=== PATIENT | female | born 1985 | race Caucasian/White ===

== ENCOUNTER 2018-11-05 05:55 | Inpatient (IN) | payer BC ==
[2018-11-05 06:40] VITALS: BMI 28.3
[2018-11-05 06:41] LABS: Amnisure Internal Control QC ACCEPTABLE (ACCEPTABLE); Amnisure Test RUPTURE DETECTED (No Rupture)
[2018-11-05] MEDS ORDERED: Promethazine HCl 25 MG/ML VIAL IM PRN ×2 (07:17→08:33)
[2018-11-05] MEDS ORDERED: Diphenoxylate HCl/Atropine Tablet PO PRN (07:17)
[2018-11-05] MEDS ORDERED: HYDROcodone/Acetaminophen 5/325 mg Tablet PO PRN ×2 (07:17→21:49)
[2018-11-05] MEDS ORDERED: Misoprostol 200 MCG TAB PR PRN (07:17)
[2018-11-05] MEDS ORDERED: Carboprost 250 MCG/ML AMP IM PRN (07:17)
[2018-11-05] MEDS ORDERED: Methylergonovine 0.2 MG/ML VIAL IM PRN ×2 (07:17→21:49)
[2018-11-05] MEDS ORDERED: Ibuprofen 800 MG TAB PO PRN (07:17)
[2018-11-05] MEDS ORDERED: Lidocaine 1% (PF) 30 ML VIAL SC PRN (07:17)
[2018-11-05] MEDS ORDERED: Butorphanol Tartrate 1 MG/ML VIAL SLOW IVP PRN (07:17)
[2018-11-05] MEDS ORDERED: Ondansetron PF 4 MG/2 ML Vial IVP PRN ×2 (07:17→08:33)
[2018-11-05] MEDS: Lactated Ringer's 1,000 ML IV SCH ×3 (07:40→17:31)
[2018-11-05] MEDS ORDERED: Fentanyl 4 mcg/Bup 0.1% Cadd 100 ML ONE ×2 (08:00→15:02)
[2018-11-05 08:06] LABS: Hemoglobin 13.7 g/dL (12.0-16.0); Mean Corpuscular HGB CONC 33.3 g/dL (32.0-36.0); Mean Corpuscular Hemoglobin 30.4 pg (27.0-31.0); Mean Corpuscular Volume 91.3 fL (78.0-98.0); Mean Platelet Volume 8.8 fL (7.4-10.4); Platelet Count 206 thou/uL (130-400); RBC Distribution Width 13.2 % (11.5-14.5)
--- NOTE | 2018-11-05 08:09 | PDOC.LDHP ---
Labor and Delivery H&P Chief complaint: contractions, loss of fluid HPI: 33 yo G1 @ 39w2d who presents with SROM and latent labor. Antepartum course complicated by depression controlled on Zoloft, otherwise no other complications. Current gestational age (weeks): 39 Due date: 11/09/18 Dating criteria: last menstrual period Grav: 1 Para: 0 Current complications: none Abnormal US findings: No Past Medical History: Depression Current medications: pre- vitamins Previous surgical history: none Allergies/Adverse Reactions: Allergies Allergy/AdvReac Type Severity Reaction Status Date / Time No Known Allergies Allergy Verified 11/05/18 06:33 Social history: none - Physical Exam Vital signs reviewed and normal: yes General: NAD Heart: RRR Lungs: nonlabored breathing Abdomen: gravid Extremeties: no edema FHT: category 2 (130s, mod sebastian, +accels, some early and variable decels with ctx ) [place] contractions every: q2-4 min - Vaginal Exam cm dilated: 4 Effacement: 90% Station: 0 - OB Labs Blood type: B RH: positive Antibody Screen: negative HIV: negative RPR: negative HEPSAg: negative 1 hour GCT: negative GBS: negative Urine drug screen: not done Rubella: immune - Assessment L&D Assessment: term rupture in membranes - Plan Plan: admit to L&D, labor augmentation if indicated, informed consent obtained, anesthesia consult for pain management
[2018-11-05] MEDS ORDERED: Lidocaine 1.5% w/Epi 1:200K 30 ML VIAL (Epid Use) ONE (08:20)
[2018-11-05] MEDS ORDERED: Acetaminophen 325 MG TAB PO PRN (08:33)
[2018-11-05] MEDS ORDERED: Eucerin (Mineral Oil/Petrolatum,White) 30 gm Jar TOP PRN (08:33)
[2018-11-05] MEDS ORDERED: Naloxone HCl 0.4 mg/ml Vial IVP PRN ×2 (08:33)
[2018-11-05] MEDS ORDERED: Lactated Ringer's 500 ML IV PRN (08:33)
[2018-11-05] MEDS ORDERED: ePHEDrine/0.9% NaCl/PF SYRINGE 50 mg/10 ml SLOW IVP PRN (08:33)
[2018-11-05] MEDS ORDERED: diphenhydrAMINE 50 MG/ML VIAL IVP PRN (08:33)
[2018-11-05] MEDS ORDERED: Communication Order-Pharmacy FS SCH (08:45)
[2018-11-05] MEDS ORDERED: Fentanyl 4 mcg/Bupivacaine 0.1% Cassette 100 ML EPIDURAL SCH (08:45)
[2018-11-05 08:52] LABS: Syphilis Antibody Nonreactive (Nonreactive); Syphilis Antibody Index 0.02 S/CO (<1.00 Non-Reactive)
[2018-11-05] MEDS ORDERED: Bupivacaine HCl 0.25%/Epi 0.0005/PF 10 ML VIAL FS ONE (09:00)
[2018-11-05] MEDS ORDERED: Bupivacaine/Epinephrine 0.25% 30 ML VIAL ONE (11:11)
[2018-11-05 14:08] LABS: HBSAg Index 0.21 S/CO (0-0.99); HIV (1/2) Antibody/Antigen Non-Reactive (NonReactive); Hep B Surf Ag Non-Reactive S/CO (NonReactive)
[2018-11-05] MEDS ORDERED: NS w/ Oxytocin 10 units 500 ML ONE (15:43)
--- NOTE | 2018-11-05 17:16 | PDOC.LDPN ---
Labor & Delivery Progress Note - Subjective Subjective: comfortable - Objective Vital signs reviewed and normal: yes General: NAD Uterine fundus: non tender Dilation: AL Effacement: 100% Station: 0 FHT: category 2 (130s, mod sebastian, +accels, prolonged variable decel with recovery with position change and d/c pitocin. ) [place] contractions every: q3-4 min Resuscitative measures: amniofusion, maternal oxygen, maternal IV fluids, maternal position change - Assessment (1) 39 weeks gestation of Code(s): Z3A.39 - 39 WEEKS GESTATION OF Current Visit: Yes Status : Acute Plan: continue plan of care, resuscitative measures
[2018-11-05] MEDS: NS / Oxytocin 40 units/1000ml 1,000 ML IV PRN ×2 (19:38→21:49)
[2018-11-05 20:03] LABS: Actual Bicarbonate (HCO3a) 17.7 mEq/L (22-28)
--- NOTE | 2018-11-05 20:04 | PDOC.OPDEL ---
OB Operative/Delivery Note Delivery Dr/Surgeon: Tatyana Steven DO Pre-Delivery Diagnosis: ruptured membrane Procedure/Post Delivery Dx: spontaneous vaginal delivery Weeks gestation: 39 Anesthesia: epidural - Findings A Sex: male - 1 min: 5 - 5 min: 3 - Additional Findings/Plan Placenta delivered: spontaneous Repaired Obstetrical Laceration: other (2nd degree and right labial) Estimated blood loss: QBL 56 mL Compilations/Other Findings: Variable decels noted with maternal pushing efforts which resolved between contractions. in cephalic presentation with nuchal cord x 1. pink and moderate tone on delivery, no spontaneous cry noted and transferred to warmer. APGARS 5/3/7. NICU called shortly after delivery. Cord gases done, please see results Normal appearing placenta. Terminal meconium stained amniotic fluid Post delivery plan: routine recovery ( transferred to NICU)
[2018-11-05 20:05] LABS: Actual Bicarbonate (HCO3v) 19 mEq/L (22-28); pH (Cord, venous) 7.11 (7.32-7.43)
[2018-11-05] MEDS ORDERED: diphenhydrAMINE 25 MG CAP PO PRN (21:49)
[2018-11-05] MEDS ORDERED: Bisacodyl 10 MG SUPP PR PRN (21:49)
[2018-11-05] MEDS ORDERED: NS / Oxytocin 40 units/1000ml 1,000 ML IV SCH (21:49)
[2018-11-05] MEDS ORDERED: Benzocaine/Menthol 20-0.5% 60 ML CAN TOP PRN (21:49)
[2018-11-05] MEDS ORDERED: Milk Of Magnesia 30 ML UDCUP PO PRN (21:49)
[2018-11-06] MEDS: Ibuprofen 800 MG TAB PO SCH ×4 (00:50→23:14)
[2018-11-06] MEDS: Docusate Calcium (SURFAK) 240 MG CAP PO SCH ×3 (00:52→20:32)
[2018-11-06 06:35] LABS: Hemoglobin 11.7 g/dL (12.0-16.0); Mean Corpuscular HGB CONC 32.6 g/dL (32.0-36.0); Mean Corpuscular Hemoglobin 30.3 pg (27.0-31.0); Mean Platelet Volume 9.5 fL (7.4-10.4); Platelet Count 129 thou/uL (130-400); RBC Distribution Width 13.2 % (11.5-14.5); Red Blood Cell (RBC) Count 3.87 mill/uL (4.20-5.40); White Blood Cell (WBC) Count 17.9 thou/uL (4.8-10.8)
--- NOTE | 2018-11-06 08:33 | PRG ---
DATE OF SERVICE: 11/06/2018 PROGRESS NOTE. PRIMARY OB: Tatyana Steven DO SUBJECTIVE: The patient is a 33-year-old female, who is day 1, status post a term spontaneous vaginal delivery. The patient this morning reports that she is doing well. Bleeding is slowing down. She is ambulating, tolerating p.o. and voiding on her own. The patient has requested resumption of her home medication, Zoloft 50 mg daily that she takes at night. OBJECTIVE: VITAL SIGNS: Today; blood pressure is 125/88, temperature 98.2, pulse is 69, and respiratory rate of 18. GENERAL: She appears to be in no acute distress. She is alert and oriented, cooperative and pleasant to interact with. HEENT: Head is normocephalic, atraumatic. Fundus is firm. EXTREMITIES: Nontender and symmetrical. ASSESSMENT AND PLAN: The patient is day 1, status post term spontaneous vaginal delivery. We will be resuming her Zoloft that she takes at night daily at home and anticipate discharge tomorrow. Job ID: [id number]
[2018-11-06] MEDS: Prenatal Vitamin 1 TAB PO SCH (10:41)
[2018-11-06] MEDS: Acetaminophen 500 MG TAB PO PRN (20:35)
[2018-11-07] MEDS: Ibuprofen 800 MG TAB PO SCH ×2 (06:07→13:44)
[2018-11-07 08:19] VITALS: BP 119/81; TEMP 98.3
[2018-11-07] MEDS: Prenatal Vitamin 1 TAB PO SCH (08:20)
[2018-11-07] MEDS: Docusate Calcium (SURFAK) 240 MG CAP PO SCH (08:20)
[2018-11-07] MEDS: Acetaminophen 500 MG TAB PO PRN (09:49)
== END 2018-11-07 13:58 | disposition home or self-care (01) | DRG 807 ==
LOC: L&D/OP 05:55 → L&D 07:23 → 3SW 23:30
PROVIDERS: ADMIT Obstetrics & Gynecology; ATTEND Obstetrics & Gynecology
PROC: 10E0XZZ Delivery of Products of Conception, External Approach (ICD-10-PCS; principal; 2018-11-05)
PROC: 0KQM0ZZ Repair Perineum Muscle, Open Approach (ICD-10-PCS; 2018-11-05)
DX: O99.344 Other mental disorders complicating childbirth (principal); Z37.0 Single live birth; F32.9 Major depressive disorder, single episode, unspecified; Z79.899 Other long term (current) drug therapy; Z3A.39 39 weeks gestation of pregnancy; O70.1 Second degree perineal laceration during delivery; O69.81X0 Labor and delivery complicated by cord around neck, without compression, not applicable or unspecified
CPT/HCPCS: 36415; 51702; 82805; 84112; 85027; 86780; 86850; 86900; 86901; 87340; 87389; 99285; A4353; J2001; J2405